=== PATIENT | male | born 2005 | race Caucasian/White ===

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

== ENCOUNTER 2024-04-29 15:42 | Outpatient (CLI) | payer BC | END 2024-04-29 23:59 | disposition home or self-care (01) | LOC: RAD 15:42 | PROVIDERS: ATTEND Family Medicine | DX: R51.9 Headache, unspecified (principal); H53.8 Other visual disturbances; H68.103 Unspecified obstruction of Eustachian tube, bilateral | CPT/HCPCS: 70450 ==